=== PATIENT | female | born 1935 | race Caucasian/White ===

== ENCOUNTER → 2016-09-26 | Outpatient (CLI) | payer MEDICARE, BC | END | disposition home or self-care (01) | LOC: RAD.S 10:10 | DX: Z12.31 Encounter for screening mammogram for malignant neoplasm of breast (principal) ==

== ENCOUNTER 2016-10-28 11:03 | Day surgery (SDC) | payer MEDICARE, BC ==
[~2016-10-28] VITALS: Ht 162.6 cm
--- NOTE | ~2016-10-28 | CATH ---
Cardiac Diagnostic Report Demographics Patient Name JESSICA Gender Female MARGARITO Barney Date of 1935 Age 81 year(s) Patient Number [id number] Date of Study 10/28/2016 Visit Number [id number] Room Number Corporate ID Ht 160.02 cm Wt 85.73 kg Accession Number [id number] BSA 1.89 m kg/m Referring Paige Hayes R Primary Physician Physician MD Prakash Painter Performing Fruehling Freddy R Secondary Physician Physician Diagnostic Fruehling Freddy R Assisting Physician Physician Interventional Fruehling Freddy R Physician Plsql Developer Physician Findings and Conclusions Diagnostic Findings and Conclusion Diffuse mild to moderate coronary disease. Distal LAD myocardial bridge. Elevated EDP 17mmHg. Systemic HTN. Diagnostic Recommendations Medical management. Will add Imdur. Procedure Description The patient was brought to the diagnostic cardiac catheterization laboratory in the fasting, non-sedated state. Informed consent was obtained in the written and verbal form after the risks and benefits were explained. The patient had no further questions and agreed to proceed. The planned puncture-incision site(s) were clipped and prepped with ChloraPrep and draped in the usual sterile manner. Conscious sedation, supplemental oxygen, and pain control medications were delivered by a registered nurse under physician guidance. Surface ECG rhythm, blood pressure measurement, and pulse oximetry were monitored throughout the procedure. Arterial access. The right radial access site was infiltrated with lidocaine. The vessel was entered with the Seldinger technique. A 6F sheath was advanced into the vessel and used for catheter placement. Selective right coronary angiography. A JR4 catheter was advanced into the right coronary vessel ostium under fluoroscopic guidance. Contrast was injected by hand. Images were obtained in multiple projections. Left heart catheterization. A JR4 catheter was advanced across the aortic valve to the left ventricle under fluoroscopic guidance. Resting hemodynamics were obtained. Selective left coronary angiography. A JL3.5 catheter was advanced into the left coronary vessel ostium under Fluoroscopic guidance. Contrast was injected by hand. Images were obtained in multiple projections. Arterial artery hemostasis was achieved. The patient was transferred to a regular nursing floor via cart accompanied by a nurse. The patient left the laboratory in stable condition. Diagnostic Cath Status: Elective Procedure Procedure Type Diagnostic procedure:Angiography:, Coronary Angios w/[facility] Indications: Abnormal nuclear perfusion test, Hypertension, Hyperlipidemia, Early family history of CAD and Diabetes. The procedure was explained in detail to the patient. Risks, complications and alternative treatments were reviewed. Written consent was obtained. Medications Reviewed with Patient prior to Procedure. Complications: No Complication. Angiographic Findings Dominance: Right Cardiac Arteries and Lesion Findings LMCA: Normal (0% Stenosis). LAD: Abnormal. Lesion on Prox LAD: 40% stenosis . Lesion on Dist LAD: 50% stenosis . Comments:myocardial bridging LCx: Abnormal. Lesion on 1st Ob Kathy: Proximal subsection.40% stenosis . Lesion on 2nd Ob Kathy: Mid subsection.30% stenosis . Lesion on 1st Ob Kathy: Mid subsection.30% stenosis . RCA: Abnormal. Lesion on Prox RCA: 30% stenosis . Lesion on Mid RCA: 40% stenosis . Lesion on Dist RCA: 40% stenosis . Lesion on R PDA: Mid subsection.40% stenosis . Coronary Tree Procedure Data Procedure Date Date: 10/28/2016Start: 01:08 PMEnd: 01:49 PM Entry Locations - Percutaneous access was performed through the Right Radial artery (Primary location). A 6 Fr sheath was inserted. Hemostasis was successfully obtained using a TR band. Procedure Medications Order and Administration + + +-------+--------+ !Time !Medication !Dosage !Route ! + + +-------+--------+ !10/28/2016 !Versed !2 mg !I.V. ! !01:06 PM ! ! ! ! + + +-------+--------+ !10/28/2016 !Fentanyl !25 mcg !I.V. ! !01:06 PM ! ! ! ! + + +-------+--------+ !10/28/2016 !Sodium Chloride !10 ml !I.V. ! !01:06 PM ! ! ! ! + + +-------+--------+ !10/28/2016 !Oxygen !2 l/min!NC ! !01:09 PM ! ! ! ! + + +-------+--------+ !10/28/2016 !SF Radial Cocktail: 200mcg Nitro, 2.5 mg ! !I.A. ! !01:13 PM !Verapamil, 5000u Heparin ! ! ! + + +-------+--------+ Devices Used - A6 FrCATH 6F FR4 CATHETER 100CMwas used for:RightsideCoronary Angios. - A6 FrCATH 6FR FL3.5 CATHETER 100CMwas used for:LeftsideCoronary Angios. Contrast Material - Isovue 05657 ml Fluoroscopy Time: Diagnostic: 8:54 minutes. Total: 8:54 minutes. Fluoroscopy Dose: Diagnostic: 738 mGy. Total: 738 mGy. Estimated Blood Loss: 5 ml. Medical History Performed Procedures and Imaging Results - Stress testing with SPECT MPIwas performed on 10/14/2016. Results were: Positive. Risk/Extent of ischemia was: Intermediate risk. Allergies - No known allergies. Risk Factors The patient risk factors include:hypertension, family history of premature CAD, untreated diabetes mellitus, last creatinine: 0.9 mg/dl, creatinine clearance: 67.47 ml/min and dyslipidemia. Admission Data Admission Date: 10/28/2016 Admission Time: 11:03 AM Insurance Payors: Medicare. Clinical Evaluation Leading to Procedure - The patient's CAD presentation was assessed as: Stable angina. - The patient's anginal syndrome during the past two weeks was assessed as: Class II according to the [place] Cardiovascular Society Classification System (CCS). Anti-anginal medications were prescribed during the past two weeks. The medication is: Beta Blockers. Hemodynamics Condition: Rest O2 Consumption: Estimated: 159.53Heart Rate: 55 bpm Pressures (mmHg) +-----+ + !Site !Pressure ! +-----+ + !AO !107/52 (73) ! +-----+ + !LV !144/5 ,17 ! +-----+ + !AO !136/52 (84) ! +-----+ + !LV !144/4 ,16 ! +-----+ + Valve Gradients and Areas + +---------+---------+---------+ +---------+ + !Valve !Peak !Mean !Area !Index !Flow !Source ! + +---------+---------+---------+ +---------+ + !Aortic !10 !10 ! ! ! ! ! + +---------+---------+---------+ +---------+ + !Aortic !10 !10 ! ! ! ! ! + +---------+---------+---------+ +---------+ + Shunts Oxygen Values O2 Capacity 172.72 O2 Consumption 159.53 Signatures
== END 2016-10-28 17:32 | disposition home or self-care (01) ==
LOC: SSS 11:03
DX: I25.118 Atherosclerotic heart disease of native coronary artery with other forms of angina pectoris (principal); I10 Essential (primary) hypertension; E78.5 Hyperlipidemia, unspecified; E11.9 Type 2 diabetes mellitus without complications; Z79.82 Long term (current) use of aspirin; Z79.899 Other long term (current) drug therapy; Z90.49 Acquired absence of other specified parts of digestive tract